=== PATIENT | male | born 2000 | race Caucasian/White ===

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

== ENCOUNTER 2021-06-25 16:55 | Inpatient (IN) | payer MEDICAID, OTHER ==
[~2021-06-25] VITALS: Ht 188 cm; Wt 81.8 kg
--- NOTE | 2021-06-25 02:24 | NUR ---
Received report from MARTI Adams RN for patient going to room 3021. Awaiting on patient arrival. Addendum: 06/26/21 at 0633 by Maggi Taylor RN Time 0226 06/26/21
[2021-06-25] MEDS ORDERED: normal saline 1000ML IV soln IVB ONE (17:15)
[2021-06-25 17:43] LABS: BASOPHILS % (AUTO) 0.3 % (0-1); EOSINOPHILS # (AUTO) 0.1 X10'3 (0-0.9); EOSINOPHILS % (AUTO) 0.6 % (0-6); HEMATOCRIT 53.3 % (42.0-52.0); LYMPHOCYTES # (AUTO) 3.6 X10'3 (1.1-4.8); LYMPHOCYTES % (AUTO) 22.2 % (21-51); MEAN CORPUSCULAR HEMOGLOBIN 31.4 PG (27.0-31.0); MEAN CORPUSCULAR HGB CONC 33.8 g/dL (33.0-36.5); MEAN CORPUSCULAR VOLUME 92.7 FL (78-98); MEAN PLATELET VOLUME 8.3 FL (7.4-10.4); MONOCYTES # (AUTO) 1.3 X10'3 (0-0.9); MONOCYTES % (AUTO) 8.1 % (2-12); NEUTROPHILS # (AUTO) 11.2 X10'3 (1.8-7.7); NEUTROPHILS % (AUTO) 68.8 % (42-75); PLATELET COUNT 356 X10'3 (140-440); RED BLOOD COUNT 5.75 X10'6 (4.70-6.10); RED CELL DISTRIBUTION WIDTH 13.6 % (11.5-14.5); WHITE BLOOD COUNT 16.3 X10'3 (4.5-11.0)
[2021-06-25 18:02] LABS: ALANINE AMINOTRANSFERASE 23 U/L (12-78); ALBUMIN/GLOBULIN RATIO 1.1 (1.1-1.5); ANION GAP 14 (8-16); ASPARTATE AMINO TRANSFERASE 27 U/L (10-37); BILIRUBIN,TOTAL 0.4 MG/DL (0.1-1.0); BLOOD UREA NITROGEN 7 MG/DL (7-18); BUN/CREATININE RATIO 7.4 (5.4-32.0); CALCIUM 8.3 MG/DL (8.5-10.1); CHLORIDE 102 MMOL/L (99-107); CREATININE 0.94 MG/DL (0.60-1.10); ETHANOL 0.057 GM/DL (0.0-0.010); GLUCOSE 216 MG/DL (70-104); SODIUM 137 MMOL/L (135-145); TOTAL CARBON DIOXIDE 20.7 MMOL/L (24-32); TOTAL PROTEIN 7.8 G/DL (6.4-8.2); eGFR > 90 ML/MIN
[2021-06-25 18:05] LABS: POTASSIUM 2.6 MMOL/L (3.5-5.1)
[2021-06-25] MEDS ORDERED: POTASSIUM BICARB 20meq eff tab 20 MEQ TABLET.EFF PO ONE (20:25)
[2021-06-25] MEDS ORDERED: potassium Cl 10 mEq/100mL bag IV ONE (20:25)
[2021-06-25] MEDS ORDERED: furosemide 10 MG/1 ML 10ml inj IV ONE (21:40)
--- NOTE | 2021-06-25 21:51 | NUR ---
pt continues to have low spo2 readings ranging between 88-90 on 6l nc. respirator at bedside to evaluate with an abg. pt kept on 6l nc per dr alves orders. pt unable to urinate at this time, informed dr alves
[2021-06-25 21:59] LABS: ABG BASE EXCESS -5.6 mmol/L (-2.0-2.0); ABG HCO3 23.5 mmol/L (22.0-26.0); ABG PCO2 (T) 55.2 mmHg (35.0-48.0); ABG PO2 (T) 61.7 mmHg (75.0-100.0); ALLEN'S TEST POSITIVE; FCOHb 0.7 % (0.0-3.9); FLOW 6 L/min; FMetHb 0.4 % (0.0-1.5); PATIENT TEMPERATURE 35.7; TOTAL HEMOGLOBIN 19.5 G/dl (14.0-18.0)
[2021-06-25] MEDS ORDERED: NO HOME MEDS (22:00)
[2021-06-25] MEDS ORDERED: naloxone 2mg/2ml inj IV ONE (22:05)
[2021-06-25 23:08] LABS: CLARITY,URINE SLIGHTLY CLOUDY (Clear); COLOR,URINE YELLOW (Yellow); GLUCOSE, URINE 100 mg/dl (Neg); KETONES,URINE NEGATIVE (Neg); LEUKOCYTE ESTERASE ,URINE NEGATIVE (Neg); NITRITES, URINE NEGATIVE (Neg); OCCULT BLOOD,URINE NEGATIVE (Neg); PROTEIN,URINE NEGATIVE (Neg); UROBILINOGEN,URINE 0.2 E.U/dL (0.2-1.0)
[2021-06-25 23:14] LABS: URINE AMPHETAMINE SCREEN POSITIVE (Neg); URINE BARBITUATE SCREEN NEGATIVE (Neg); URINE BENZODIAZEPINES SCREEN NEGATIVE (Neg); URINE CANNABINOID SCREEN POSITIVE (Neg); URINE COCAINE SCREEN POSITIVE (Neg); URINE METHADONE SCREEN NEGATIVE (Neg); URINE OPIATE SCREEN NEGATIVE (Neg); URINE PHENCYCLIDINE SCREEN NEGATIVE (Neg)
[2021-06-25 23:18] LABS: UA COLLECTION TYPE STRAIGHT CATH
[2021-06-25 23:39] LABS: RBC,URINE 0-2 /HPF (0-2); WBC,URINE 0-4 /HPF (0-4)
[2021-06-25 23:40] LABS: BACTERIA,URINE FEW /HPF (Neg); MUCUS STRANDS NONE SEEN /LPF (Neg); SQUAMOUS EPITHELIAL CELL,UR NONE SEEN /LPF (FEW)
[2021-06-26] VITALS (7 sets, daily range): BP systolic 121–144; BP diastolic 76–92
[2021-06-26] MEDS ORDERED: magnesium 2GM in 50ml NS 50 ML IV PRN (00:10)
[2021-06-26] MEDS ORDERED: potassium Cl 20 mEq SR tablet PO PRN ×2 (00:10)
[2021-06-26] MEDS ORDERED: magnesium 4gm in 100ml NS 100 ML IV PRN (00:10)
[2021-06-26] MEDS ORDERED: PERFLUTREN PROTEIN-A MICROSPHR (Optison) 0.22 MG/ML 3ML VIAL IV ONE (00:10)
[2021-06-26] MEDS ORDERED: ondansetron/PF 4mg/2ml inj IV PRN (00:10)
[2021-06-26] MEDS ORDERED: magnesium Cl slow-release 64mg tablet PO PRN (00:10)
[2021-06-26] MEDS ORDERED: ipratropium/albuterol 3ml nebule NEB PRN ×2 (00:10)
[2021-06-26] MEDS ORDERED: potassium CL 10mEq/100ml bag 100 ML IV PRN (00:10)
[2021-06-26 01:17] LABS: MAGNESIUM 1.6 MG/DL (1.5-2.4); POTASSIUM 4.3 MMOL/L (3.5-5.1)
--- NOTE | 2021-06-26 02:36 | NUR ---
The patient, JOSE MANUEL TORRES, 20 y/o, M admitted by ROZ CHASE MD, was given written information regarding hospital policies, unit procedures and contact persons. See Admission information. Patient arrived via gurney, transf. to hosp bed, no acute distress noted at this time. Skin intact, aldridge patent with clear yellow urine noted. Denies any pain or discomfort at this time. Call light within reach, safety measures and comfort maintained. Will continue to monitor.
--- NOTE | 2021-06-26 06:36 | NUR ---
Problems reprioritized. Patient report given, questions answered & plan of care reviewed with Rosendaa.
--- NOTE | 2021-06-26 06:52 | NUR ---
Patient in room PCU 3021. I have received report from Fred and had the opportunity to ask questions and assume patient care.
[2021-06-26] MEDS: K and/or MAG REPLACEMENT MC SCH ×2 (07:18→20:00)
[2021-06-26 09:59] LABS: BASOPHILS % (AUTO) 0.1 % (0-1); EOSINOPHILS % (AUTO) 0.1 % (0-6); HEMOGLOBIN 17.6 g/dl (14.0-17.9); LYMPHOCYTES # (AUTO) 1.6 X10'3 (1.1-4.8); MEAN CORPUSCULAR HEMOGLOBIN 31.5 PG (27.0-31.0); MEAN CORPUSCULAR HGB CONC 34.5 g/dL (33.0-36.5); MEAN CORPUSCULAR VOLUME 91.5 FL (78-98); MEAN PLATELET VOLUME 8.1 FL (7.4-10.4); MONOCYTES # (AUTO) 0.9 X10'3 (0-0.9); MONOCYTES % (AUTO) 3.9 % (2-12); NEUTROPHILS # (AUTO) 19.9 X10'3 (1.8-7.7); NEUTROPHILS % (AUTO) 88.9 % (42-75); PLATELET COUNT 298 X10'3 (140-440); RED BLOOD COUNT 5.57 X10'6 (4.70-6.10); RED CELL DISTRIBUTION WIDTH 13.4 % (11.5-14.5); WHITE BLOOD COUNT 22.4 X10'3 (4.5-11.0)
[2021-06-26 10:32] LABS: ALANINE AMINOTRANSFERASE 28 U/L (12-78); ALBUMIN/GLOBULIN RATIO 1.3 (1.1-1.5); ANION GAP 7 (8-16); ASPARTATE AMINO TRANSFERASE 28 U/L (10-37); BLOOD UREA NITROGEN 11 MG/DL (7-18); BUN/CREATININE RATIO 12.5 (5.4-32.0); CALCIUM 8.9 MG/DL (8.5-10.1); CHLORIDE 99 MMOL/L (99-107); CREATININE 0.88 MG/DL (0.60-1.10); GLUCOSE 86 MG/DL (70-104); POTASSIUM 4.7 MMOL/L (3.5-5.1); SODIUM 138 MMOL/L (135-145); TOTAL CARBON DIOXIDE 32.1 MMOL/L (24-32); TOTAL PROTEIN 7.2 G/DL (6.4-8.2); eGFR > 90 ML/MIN
--- NOTE | 2021-06-26 12:03 | NUR ---
ORDERS FOR HEART HEALTHY DIET AND TO D/C MOON CATHETER PUT IN PER DR. PARKER.
--- NOTE | 2021-06-26 12:24 | NUR ---
Page Sent PAGER ID: [phone] MESSAGE: Roni Sesay in Rm [id number] wants his aldridge removed. Please advise. [facility] [phone]
[2021-06-26] MEDS: furosemide 20 MG/2 ML vial IV SCH ×2 (14:56→20:00)
[2021-06-26] MEDS: CefTRIAXone 2gm/D5W 50ml BAG 50 ML IV SCH (14:56)
[2021-06-26] MEDS ORDERED: VANCOmycin 1250MG/NS 250ml Bag 250 ML IV SCH (16:00)
[2021-06-26] MEDS: vancomycin inj 1,250 MG in dextrose 5%-water 250 ML IV SCH (17:39)
--- NOTE | 2021-06-26 18:25 | NUR ---
Patient in room PCU 3021. I have received report from GATO Leon and had the opportunity to ask questions and assume patient care.
--- NOTE | 2021-06-26 18:40 | NUR ---
Problems reprioritized. Patient report given, questions answered & plan of care reviewed with Fred.
[2021-06-26] MEDS: acetaminophen 325mg tablet PO PRN (23:33)
[2021-06-27 03:00] VITALS: BP 118/67
[2021-06-27] MEDS: vancomycin inj 1,250 MG in dextrose 5%-water 250 ML IV SCH ×2 (04:00→07:38)
--- NOTE | 2021-06-27 06:25 | NUR ---
Problems reprioritized. Patient report given, questions answered & plan of care reviewed with GATO Miller.
[2021-06-27 06:41] LABS: BASOPHILS % (AUTO) 0.5 % (0-1); EOSINOPHILS # (AUTO) 0.4 X10'3 (0-0.9); HEMATOCRIT 46.8 % (42.0-52.0); HEMOGLOBIN 16.3 g/dl (14.0-17.9); LYMPHOCYTES # (AUTO) 1.5 X10'3 (1.1-4.8); MEAN CORPUSCULAR HEMOGLOBIN 31.8 PG (27.0-31.0); MEAN CORPUSCULAR HGB CONC 34.9 g/dL (33.0-36.5); MEAN CORPUSCULAR VOLUME 91.2 FL (78-98); MEAN PLATELET VOLUME 8.2 FL (7.4-10.4); MONOCYTES # (AUTO) 0.7 X10'3 (0-0.9); MONOCYTES % (AUTO) 6.5 % (2-12); PLATELET COUNT 246 X10'3 (140-440); RED BLOOD COUNT 5.13 X10'6 (4.70-6.10); RED CELL DISTRIBUTION WIDTH 13.5 % (11.5-14.5); WHITE BLOOD COUNT 10.6 X10'3 (4.5-11.0)
[2021-06-27] MEDS: acetaminophen 325mg tablet PO PRN (07:02)
[2021-06-27] MEDS: furosemide 20 MG/2 ML vial IV SCH (07:09)
[2021-06-27 07:17] LABS: ALBUMIN 3.4 G/DL (3.4-5.0); ANION GAP 3 (8-16); BLOOD UREA NITROGEN 15 MG/DL (7-18); BUN/CREATININE RATIO 16.5 (5.4-32.0); CALCIUM 8.9 MG/DL (8.5-10.1); CHLORIDE 102 MMOL/L (99-107); CREATININE 0.91 MG/DL (0.60-1.10); GLUCOSE 82 MG/DL (70-104); POTASSIUM 4.2 MMOL/L (3.5-5.1); SODIUM 139 MMOL/L (135-145); TOTAL CARBON DIOXIDE 34.1 MMOL/L (24-32); eGFR > 90 ML/MIN
[2021-06-27] MEDS: CefTRIAXone 2gm/D5W 50ml BAG 50 ML IV SCH (07:30)
[2021-06-27 08:00] VITALS: BP 117/67
[2021-06-27] MEDS: K and/or MAG REPLACEMENT MC SCH (08:00)
[2021-06-27] MEDS ORDERED: AMOX-580 PO (10:56)
[2021-06-28] MEDS ORDERED: VANCOMYCIN LEVEL IV ONE (03:30)
== END 2021-06-27 14:33 | disposition home or self-care (01) | DRG 871 ==
LOC: ER 16:55 → UNDOADMIN 23:54 → ED HOLD 23:54 → PCU 3S 06-26 02:40 → ED HOLD 06-26 02:40
PROVIDERS: ADMIT Internal Medicine; ATTEND Internal Medicine
DX: A41.9 Sepsis, unspecified organism (principal); J96.02 Acute respiratory failure with hypercapnia; J69.0 Pneumonitis due to inhalation of food and vomit; I21.A1 Myocardial infarction type 2; G92.9 Unspecified toxic encephalopathy; J96.01 Acute respiratory failure with hypoxia; F12.10 Cannabis abuse, uncomplicated; F14.10 Cocaine abuse, uncomplicated; Z20.822 Contact with and (suspected) exposure to COVID-19; F10.20 Alcohol dependence, uncomplicated; F17.210 Nicotine dependence, cigarettes, uncomplicated; T40.601A Poisoning by unspecified narcotics, accidental (unintentional), initial encounter; E87.6 Hypokalemia; J70.4 Drug-induced interstitial lung disorders, unspecified; T50.995A Adverse effect of other drugs, medicaments and biological substances, initial encounter; Y92.89 Other specified places as the place of occurrence of the external cause; Z71.6 Tobacco abuse counseling
CPT/HCPCS: 36415; 36600; 71045; 80048; 80053; 80305; 80320; 81001; 82803; 83605; 83735; 84132; 84145; 84484; 85018; 85025; 87040; 87081; 87635; 93005; 93306; 94760; 96361; 96374; 96375; 99285; C9803; G0378; J0696; J1940; J2310; J2405; J3370; J3480; J7030; J7060